=== PATIENT | female | born 1935 | race Caucasian/White ===

== ENCOUNTER 2018-06-12 10:59 | Outpatient (CLI) | payer MEDICARE ==
--- NOTE | 2018-06-12 12:22 | CT ---
CT OF THE BRAIN WITHOUT CONTRAST: Date: 06/12/18 COMPARISON: None. HISTORY: Dementia. Memory loss for last 6 months. TECHNIQUE: Multiple contiguous axial images were obtained in a CT of the brain without contrast. FINDINGS: There are scattered hypodensities in the subcortical and periventricular white matter, likely seconda ry to small vessel ischemic disease. No large confluent infarction is seen. No cerebral atrophy is se en. There is no evidence of hydrocephalus, intracranial hemorrhage, or extra-axial fluid collection. The calvarium and overlying soft tissues are unremarkable. The visualized paranasal sinuses and masto id air cells are well aerated. IMPRESSION: No evidence of acute intracranial abnormality. POS: C
== END 2018-06-12 11:00 | disposition home or self-care (01) ==
LOC: SCSCT 10:59
PROVIDERS: ATTEND Internal Medicine Geriatric Medicine
DX: F03.90 Unspecified dementia, unspecified severity, without behavioral disturbance, psychotic disturbance, mood disturbance, and anxiety (principal)
CPT/HCPCS: 70450

== ENCOUNTER 2018-10-26 10:17 | Outpatient (CLI) | payer MEDICARE ==
--- NOTE | 2018-10-26 13:00 | BD ---
DEXA BONE DENSITY STUDY: Date: 10/26/18 HISTORY: Postmenopausal. FINDINGS: Lumbar Spine: BMD (g/cm2) L1 0.835 T-Score: -1.4 L2 0.877 T-Score: -1.4 L3 0.931 T-Score: -1.4 L4 1.070 T-Score: +0.1 Total 0.934 T-Score: -1.0 Left Femoral Neck: 0.562 T-Score: -2.6 Total Femur: 0.722 T-Score: -1.8 IMPRESSION: 1. Osteoporosis of left femoral neck. 2. Normal bone mineral density of the lumbar spine. POS: C
--- NOTE | 2018-11-23 09:03 | MMO ---
Bilateral MAMMO Bilat Screen [facility]. CLINICAL HISTORY: Patient is 83 years old and is seen for screening. The patient has no family history of breast cancer. The patient has no personal history of cancer. VIEWS: The views performed were: bilateral craniocaudal with tomosynthesis and bilateral mediolateral oblique with tomosynthesis. MAMMOGRAM FINDINGS: There are scattered fibroglandular densities. There are no suspicious masses, suspicious calcifications, or new areas of architectural distortion. IMPRESSION: THERE IS NO MAMMOGRAPHIC EVIDENCE OF MALIGNANCY. A ROUTINE FOLLOW-UP MAMMOGRAM IN 1 YEAR IS RECOMMENDED. THE RESULTS OF THIS EXAM WERE SENT TO THE PATIENT. ACR BI-RADS Category 1 - Negative MAMMOGRAPHY NOTE: 1. A negative mammogram report should not delay a biopsy if a dominant of clinically suspicious mass is present. 2. Approximately 10% to 15% of breast cancers are not detected by mammography. 3. Adenosis and dense breasts may obscure an underlying neoplasm. Reported by: MAME FERGUSON MD Electonically Signed: [id number]
== END 2018-10-26 10:18 | disposition home or self-care (01) ==
LOC: BICMAMMO 10:17
PROVIDERS: ATTEND Internal Medicine Geriatric Medicine
DX: Z12.31 Encounter for screening mammogram for malignant neoplasm of breast (principal); Z13.820 Encounter for screening for osteoporosis; E55.9 Vitamin D deficiency, unspecified; M81.0 Age-related osteoporosis without current pathological fracture
CPT/HCPCS: 77063; 77067; 77080